=== PATIENT | female | born 1965 | race Caucasian/White ===

== ENCOUNTER 2017-09-01 09:45 | Emergency (ER) | payer OTHER ==
--- NOTE | 2017-09-01 10:22 | ED Physician Documentation ---
Skin Rash - HISTORIAN Historian: patient - HPI Stated Complaint: Rash Chief Complaint: Skin Rash Onset: days ago (7) Timing: worse Duration: worse Location: other (under breasts and abdomen) Context: Food Exposure: none Further Comments: yes (52 year old female patient presents with complaints of rash under breasts worse, started 7 days ago, has been on nystatin since Saturday. Saw PCP on Saturday for "new bumps", was prescribed mupirocin topical. States it isn't helping.) - ROS CONST: none CVS/RESP: none EYES/ENT: none GI/: none MS/SKIN/LYMPH: none NEURO/PSYCH: none - PAST HX Past History: hypertension Allergies/Adverse Reactions: Allergies Allergy/AdvReac Type Severity Reaction Status Date / Time Penicillins Allergy Verified 09/01/17 10:20 Home Medications: Ambulatory Orders Medication Instructions Recorded Cephalexin [Keflex] 500 mg PO TID #21 capsule 09/01/17 Mupirocin [Bactroban] 1 appl TP BID 09/01/17 - SOCIAL HX Smoking History: cigarettes - FAMILY HX Family History: denies: none - VITAL SIGNS Vital Signs: Vital Signs Temp Pulse Resp BP Pulse Ox 98.1 F 88 18 116/82 98 09/01/17 10:30 09/01/17 10:30 09/01/17 10:30 09/01/17 10:30 09/01/17 10:30 - REVIEWED ASSESSMENTS Nursing Assessment Reviewed: Yes Vitals Reviewed: Yes Progress - Progress Progress: reviewed discharge instructions and plan of care with patient. Questions answered. Skin Rash Physical Exam - EXAM General Appearance: mild distress Skin: warm,dry, skin rash (folliculitis noted on chest wall and abdomen), other (Bilateral breast with erythema noted in skin folds; c/o burning) Extremities: non-tender, nml ROM, no edema Respiratory: no resp distress, chest non-tender, breath sounds normal CVS: reg. 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 Diagnosis: Folliculitis Clean area twice a day with soap and water, continue antibiotic cream. Start your antibiotic today Condition: Stable Disposition: 01 HOME, SELF-CARE Decision to Admit: NO Decision Time: 10:22
[2017-09-01 10:49] VITALS: BP 116/82
== END 2017-09-01 10:30 | disposition home or self-care (01) ==
LOC: ED 09:45
DX: B37.89 Other sites of candidiasis (principal); L66.4 Folliculitis ulerythematosa reticulata
CPT/HCPCS: 99282

== ENCOUNTER 2017-11-01 20:40 | Emergency (ER) | payer SELFPAY ==
--- NOTE | 2017-11-01 20:55 | ED Physician Documentation ---
General Adult - HISTORIAN Historian: patient - HPI Stated Complaint: R flank pain Chief Complaint: General Adult Onset: days ago (3) Timing: still present Severity: moderate Further Comments: yes (Pt is a 52 yo female with pain in the R side. Pt wonders if she might have a kidney stone. She does not appear uncomfortable. Pt has had a cholecystectomy. 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 She says she started a new way of lifting them this week, approaching them from the side opposite the side she is used to.) - ROS CONST: no problems EYES/ENT: none CVS/RESP: none GI/: other (pain in R side ? if GI) MS/SKIN/LYMPH: other (pain in R side) - PAST HX Past History: hypertension Surgeries/Procedures: , cholecystectomy Allergies/Adverse Reactions: Allergies Allergy/AdvReac Type Severity Reaction Status Date / Time Penicillins Allergy Severe Anaphylaxis Verified 11/01/17 20:54 - SOCIAL HX Smoking History: cigarettes - FAMILY HX Family History: No - VITAL SIGNS Vital Signs: Vital Signs Temp Pulse Resp BP Pulse Ox 116/82 09/01/17 10:30 - REVIEWED ASSESSMENTS Nursing Assessment Reviewed: Yes Vitals Reviewed: Yes Progress - Progress Progress: U/a - neg; s.g. >1.030 Pt refused IV and further work-up. General Adult Physical Exam - PHYSICAL EXAM GENERAL APPEARANCE: no distress EENT: pharynx normal NECK: normal inspection, supple RESPIRATORY: no resp distress, chest non-tender, breath sounds normal CVS: reg rate & rhythm, heart sounds normal ABDOMEN: soft, no organomegaly, normal bowel sounds, tenderness (mild tenderness in L lower back). No: rebound BACK: normal inspection, no CVA tenderness SKIN: warm/dry, normal color EXTREMITIES: non-tender, normal range of motion, no evidence of injury, no edema NEURO: oriented X3, motor nml, sensation nml Discharge Clincal Impression: Musculoskeletal pain Referrals: Primary Doctor,No [Primary Care Provider] - Condition: Good Disposition: 01 HOME, SELF-CARE Decision to Admit: NO Decision Time: 22:00
[2017-11-01] MEDS ORDERED: IBUPROFEN 200 MG TABLET PO ONE (21:08)
[2017-11-01 21:09] VITALS: BP 131/79
[2017-11-02 06:31] LABS: APPEARANCE,URINE CLEAR (CLEAR); COLOR,URINE YELLOW (YELLOW); OCCULT BLOOD,URINE NEGATIVE (NEGATIVE)
== END 2017-11-01 21:56 | disposition home or self-care (01) ==
LOC: ED 20:40
DX: M79.1 Myalgia (principal); Z53.9 Procedure and treatment not carried out, unspecified reason
CPT/HCPCS: 81002; 99283